=== PATIENT | female | born 1975 | race Two or more races ===

== ENCOUNTER 2022-07-20 05:08 | Day surgery (SDC) | payer OTHER ==
[~2022-07-20] VITALS: Ht 157.5 cm; Wt 113.4 kg
[~2022-07-20 05:08] MED LIST: DICY20TA PO; GABAPENTIN600 MG PO; IBUPROFEN800 MG PO; LEVSIN0.125 MG PO; POLY119PG PO; PROTONIX20 MG PO
== END 2022-07-20 11:50 | disposition home or self-care (01) ==
LOC: CIR.AMB 05:08
PROVIDERS: ATTEND Specialist
DX: K81.0 Acute cholecystitis (principal); Z20.822 Contact with and (suspected) exposure to COVID-19; Z86.16 Personal history of COVID-19; F17.210 Nicotine dependence, cigarettes, uncomplicated